=== PATIENT | female | born 1985 | race Caucasian/White ===

== ENCOUNTER 2025-03-24 00:08 | Emergency (ER) | payer BC ==
[~2025-03-24] VITALS: Ht 167.6 cm; Wt 77.1 kg
[2025-03-24] MEDS ORDERED: DIPH25CA83 PO (00:20)
[2025-03-24] MEDS ORDERED: EPIN0.3P3 IM (00:21)
[2025-03-24] MEDS ORDERED: FAMOTIDINE 20 MG TABLET ONE (00:29)
[2025-03-24] MEDS ORDERED: DEXAMETHASONE 4 MG TABLET ONE (00:29)
[2025-03-24] MEDS ORDERED: IBUPROFEN 600 MG TABLET ONE (00:29)
[2025-03-24] MEDS ORDERED: diphenhydrAMINE 25 MG CAP PO ONE (00:29)
[2025-03-24] MEDS: diphenhydrAMINE 25 MG/10 ML UDC PO ONE (00:32)
[2025-03-24] MEDS: FAMOTIDINE 20 MG TABLET PO ONE (00:33)
[2025-03-24] MEDS: DEXAMETHASONE 4 MG TABLET PO ONE (00:33)
[2025-03-24] MEDS: IBUPROFEN 600 MG TABLET PO ONE (00:34)
[2025-03-24 02:47] VITALS: BP 112/78; O2SAT 99
== END 2025-03-24 02:52 | disposition home or self-care (01) ==
LOC: ER 00:23
DX: L50.9 Urticaria, unspecified (principal); T42.6X5A Adverse effect of other antiepileptic and sedative-hypnotic drugs, initial encounter; F17.210 Nicotine dependence, cigarettes, uncomplicated; F19.11 Other psychoactive substance abuse, in remission; G40.909 Epilepsy, unspecified, not intractable, without status epilepticus; F32.A Depression, unspecified; F41.9 Anxiety disorder, unspecified; F19.10 Other psychoactive substance abuse, uncomplicated; Z88.8 Allergy status to other drugs, medicaments and biological substances; Y92.89 Other specified places as the place of occurrence of the external cause
CPT/HCPCS: 99284; J8540; Q0163; A4606; A4663

== ENCOUNTER 2025-03-29 20:11 | Emergency (ER) | payer BC ==
[~2025-03-29] VITALS: Ht 167.6 cm; Wt 77.1 kg
[~2025-03-29 20:11] MED LIST: DIPH25CA83 PO; EPIN0.3P3 IM
[2025-03-29] MEDS ORDERED: HYDROCODONE/APAP 10-325 MG TABLET ONE (20:48)
[2025-03-29] MEDS ORDERED: CLONAZEPAM 1 MG TABLET ONE (20:48)
[2025-03-29] MEDS: HYDROCODONE/APAP 10-325 MG TABLET PO ONE (20:50)
[2025-03-29] MEDS: CLONAZEPAM 0.5 MG TABLET PO ONE (20:50)
[2025-03-29] MEDS ORDERED: IBUP-1955 PO (21:33)
[2025-03-29] MEDS ORDERED: CLON1TAB12 PO (21:33)
[2025-03-29 22:44] VITALS: BP 118/88; O2SAT 99
== END 2025-03-29 21:50 | disposition home or self-care (01) ==
LOC: ER 20:13
DX: G40.909 Epilepsy, unspecified, not intractable, without status epilepticus (principal); F11.10 Opioid abuse, uncomplicated; F13.20 Sedative, hypnotic or anxiolytic dependence, uncomplicated; F17.210 Nicotine dependence, cigarettes, uncomplicated; F41.9 Anxiety disorder, unspecified; Z79.899 Other long term (current) drug therapy; Z88.8 Allergy status to other drugs, medicaments and biological substances
CPT/HCPCS: 70450; 73502; A4606; A4663